=== PATIENT | female | born 1980 ===

== ENCOUNTER 2017-03-27 12:35 | Emergency (ER) | payer MEDICAID, OTHER ==
[2017-03-27 12:35] VITALS: BMI 36.8
[2017-03-27 12:54] VITALS: BP 125/85; PULSE 100; RESP 20; TEMP 98; O2SAT 99
--- NOTE | 2017-03-27 13:21 | ED PDOC ---
HPI: Psych/Substance Abuse Time Seen by Provider: 03/27/17 12:55 Chief Complaint (Nursing): Med Refill Chief Complaint (Provider): Psychiatric evaluation History Per: Patient History/Exam Limitations: no limitations Onset/Duration Of Symptoms: Days (x 2 months) Current Symptoms Are (Timing): Still Present Additional Complaint(s): Moira Santiago is a 36 y/o female who presents to the ED for psychiatric evaluation. States that due to insurance changes, she cannot afford psychiatrist 's office visit, and has been unable to find an in-network psychiatrist in the area accepting new patients. Patient has been off psychiatric meds for 2 months and is being to feel more anxious and frustrated. Has history of bipolar disorder and anxiety. Patient found old bottle of Celexa in her house and took one (20 mg), but felt worse. States she needs Celexa, Adderall, [place], and Latuda. PMD: Provider TBD Past Medical History Reviewed: Historical Data, Nursing Documentation, Vital Signs Vital Signs: Last Vital Signs Temp 98.0 F 03/27/17 12:50 Pulse 100 H 03/27/17 12:50 Resp 20 03/27/17 12:50 BP 125/85 03/27/17 12:50 Pulse Ox 99 03/27/17 12:50 - Medical History PMH: Anxiety, Back Problems (thoracic spine injury 12 yrs ago), Bipolar Disorder , Depression Denies: Diabetes, Hepatitis, HIV, HTN, Chronic Kidney Disease, Seizures, Sexually Transmitted Disease - Family History Family History: States: Unknown Family Hx - Immunization History Hx Tetanus Toxoid Vaccination: No Hx Influenza Vaccination: No Hx Pneumococcal Vaccination: No - Home Medications Home Medications: Ambulatory Orders Medication Instructions Recorded Citalopram Hydrobromide [Celexa] 20 mg PO DAILY 02/02/16 Dextroamphetamine/Amphetamine 30 mg PO DAILY 02/02/16 [Adderall Xr] DiphenhydrAMINE [Benadryl] 25 mg PO Q4H PRN #30 cap 02/02/16 Famotidine [Pepcid] 20 mg PO DAILY #5 tab 02/02/16 [place] Carbonate 1,200 mg PO DAILY 02/02/16 Lurasidone Hydrochloride [Latuda] 40 mg PO DAILY 02/02/16 predniSONE [Prednisone] 20 mg PO BID #10 tab 02/02/16 - Allergies Allergies/Adverse Reactions: Allergies Allergy/AdvReac Type Severity Reaction Status Date / Time No Known Allergies Allergy Verified 04/30/14 23:48 Review of Systems ROS Statement: Except As Marked, All Systems Reviewed And Found Negative Psych: Positive for: Anxiety, Depression Physical Exam - Reviewed Nursing Documentation Reviewed: Yes Vital Signs Reviewed: Yes - Physical Exam Appears: Positive for: Well, Non-toxic, No Acute Distress Head Exam: Positive for: ATRAUMATIC, NORMAL INSPECTION, NORMOCEPHALIC Skin: Positive for: Normal Color, Warm, Dry Eye Exam: Positive for: Normal appearance Neck: Positive for: Normal Cardiovascular/Chest: Positive for: Regular Rate, Rhythm. Negative for: Murmur Respiratory: Negative for: Respiratory Distress Extremity: Positive for: Normal ROM. 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 I have reviewed the chart and agree that the record accurately reflects my personal performance of the history, physical exam, medical decision making, and the department course for this patient. I have also personally directed, reviewed, and agree with the discharge instructions and disposition. Disposition - Clinical Impression Clinical Impression: Bipolar 2 disorder - Patient ED Disposition Is Patient to be Admitted: No Counseled Patient/Family Regarding: Diagnosis, Need For Followup - Disposition Referrals: [facility] [Outside] Disposition: Routine/Home Disposition Time: 15:11 Condition: GOOD Instructions: Bipolar Disorder (ED) Forms: [facility] (Kinyarwanda)
== END 2017-03-27 15:35 | disposition home or self-care (01) ==
LOC: H.ER 12:35
DX: F31.9 Bipolar disorder, unspecified (principal)

== ENCOUNTER 2017-04-17 17:11 | Emergency (ER) | payer MEDICAID, OTHER ==
[2017-04-17 17:12] VITALS: BMI 36.8
[2017-04-17 17:17] VITALS: BP 118/69; PULSE 75; RESP 16; TEMP 96.5; O2SAT 100
[2017-04-17 18:00] LABS: RBC URINE 3 /hpf (0-3); URINE BACTERIA RARE (<OCC); URINE BILIRUBIN NEGATIVE (NEGATIVE); URINE BLOOD NEGATIVE (NEGATIVE); URINE COLOR YELLOW (YELLOW); URINE GLUCOSE (UA) NEG (Normal); URINE KETONE NEGATIVE (NEGATIVE); URINE LEUKOCYTE ESTERASE NEG Leu/uL (Negative); URINE PROTEIN 30 mg/dL (NEGATIVE); WBC URINE 2 /hpf (0-5)
[2017-04-17 18:30] LABS: BASO # 0.1 K/uL (0.0-0.2); EOS # 0.4 K/uL (0.0-0.7); EOS % 3.1 % (0.0-4.0); HEMATOCRIT 40.3 % (34.0-47.0); LYMPH # 2.1 K/uL (1.0-4.3); LYMPH % 16.8 % (20.0-40.0); MEAN CELL VOLUME 93.1 fl (81.0-99.0); MEAN CORPUSCULAR HEMOGLOBIN 31.6 pg (27.0-31.0); MEAN CORPUSCULAR HGB CONC 33.9 g/dL (33.0-37.0); MEAN PLATELET VOLUME 8.9 fl (7.2-11.7); MONO # 0.9 K/uL (0.0-0.8); MONO % 7.1 % (0.0-10.0); WHITE BLOOD COUNT 12.5 K/uL (4.8-10.8)
--- NOTE | 2017-04-17 18:38 | ED PDOC ---
Syncope/Near Syncope/Dizziness Time Seen by Provider: 04/17/17 17:36 Chief Complaint (Nursing): Syncope Chief Complaint (Provider): Syncope History Per: Patient History/Exam Limitations: no limitations Onset/Duration Of Symptoms: Mins Current Symptoms Are (Timing): Gone Now Number Of Syncopal Episodes: 1 Activity At Onset Of Symptoms: Standing Associated Symptoms Preceding Syncopal Episode: Lightheadedness Seizure Or Post-ictal Symptoms: None Possible Causative Factor(s): New Medications Fall Associated With With Symptoms: No Injury As Result Of Fall Pain Scale Rating Of: 0 Additional Complaint(s): Moira Santiago, a 37 year old female, with a past medical history of bipolar disorder and attention-deficit/hyperactivity disorder presents to the ED post syncopal episode. The patient reports that she was at the [employer] standing in the line to pay for her groceries when she began to experience lightheadedness, cold sweats and nausea. According to the patient she felt these symptoms for a minute before she passed out. As per babita, the patient was unresponsive despite her eyes being open and remained this way for 2 minutes before she woke up.The patient reports that she woke up sitting on a crate and was told that she was falling forward and someone caught her before she fell and seated her on the crate. Prior to passing out, the patient states that she was able to text her to inform him that she was not feeling well. Patient states there was no postictal state and she was able to provide the number for her who came to get her and brought her to the hospital. Patient reports that prior to her syncopal episode she was sleeping normally, she was not on any diets and she has been taking her medications as prescribed. Of note: Patient reports that she recently increased her dosage of celaxa from 10 to 20 mg and her first dose was last night. PMD: Meir Jurado Past Medical History Reviewed: Historical Data, Nursing Documentation, Vital Signs Vital Signs: Last Vital Signs Temp 96.5 F L 04/17/17 17:13 Pulse 75 04/17/17 17:13 Resp 16 04/17/17 17:13 BP 118/69 04/17/17 17:13 Pulse Ox 100 04/17/17 17:13 - Medical History PMH: Anxiety, Back Problems (thoracic spine injury 12 yrs ago), Bipolar Disorder , Depression Denies: Diabetes, Hepatitis, HIV, HTN, Chronic Kidney Disease, Seizures, Sexually Transmitted Disease Other PMH: attention deficit/hyperactivity disorder - Surgical History Surgical History: No Surg Hx - Family History Family History: States: Other Other Family History: Mood disorders - Living Arrangements Living Arrangements: With Family - Social History Current smoker - smoking cessation education provided: No Ex-Smoker (has not smoked in the last 12 months): No Alcohol: Occasional (drinks 1-2 times per month) Drugs: Denies - Immunization History Hx Tetanus Toxoid Vaccination: No Hx Influenza Vaccination: No Hx Pneumococcal Vaccination: No - Home Medications Home Medications: Ambulatory Orders Medication Instructions Recorded Citalopram Hydrobromide [Celexa] 20 mg PO DAILY 02/02/16 Dextroamphetamine/Amphetamine 30 mg PO DAILY 02/02/16 [Adderall Xr] DiphenhydrAMINE [Benadryl] 25 mg PO Q4H PRN #30 cap 02/02/16 Famotidine [Pepcid] 20 mg PO DAILY #5 tab 02/02/16 [place] Carbonate 1,200 mg PO DAILY 02/02/16 Lurasidone Hydrochloride [Latuda] 40 mg PO DAILY 02/02/16 predniSONE [Prednisone] 20 mg PO BID #10 tab 02/02/16 - Allergies Allergies/Adverse Reactions: Allergies Allergy/AdvReac Type Severity Reaction Status Date / Time No Known Allergies Allergy Verified 04/17/17 17:13 Review of Systems ROS Statement: Except As Marked, All Systems Reviewed And Found Negative Constitutional: Positive for: Sweats (cold sweats) Cardiovascular: Positive for: Light Headedness Gastrointestinal: Positive for: Nausea Neurological: Positive for: Other (syncopal episode) Physical Exam - Reviewed Nursing Documentation Reviewed: Yes Vital Signs Reviewed: Yes - Physical Exam Appears: Positive for: Non-toxic, No Acute Distress Head Exam: Positive for: ATRAUMATIC, NORMOCEPHALIC Skin: Positive for: Warm, Dry Eye Exam: Positive for: EOMI, PERRL ENT: Positive for: Pharynx Is (clear). Negative for: Pharyngeal Erythema, Tonsillar Exudate Neck: Positive for: Painless ROM, Supple Cardiovascular/Chest: Positive for: Regular Rate, Rhythm, Chest Non Tender. Negative for: Murmur Respiratory: Positive for: Normal Breath Sounds. Negative for: Respiratory Distress Gastrointestinal/Abdominal: Positive for: Soft. Negative for: Tenderness Back: Positive for: Normal Inspection. Negative for: Decreased ROM Extremity: Positive for: Normal ROM. 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 Negative for: Motor/ Sensory Deficits, Aphasia, Facial Droop - Laboratory Results Result Diagrams: 04/17/17 18:25 04/17/17 18:25 - ECG ECG Rhythm: Positive for: Normal QRS, Normal ST Segment, Sinus Rhythm (68 bpm) O2 Sat by Pulse Oximetry: 100 (RA) Pulse Ox Interpretation: Normal Medical Decision Making Medical Decision Makin Initial Impression 37 y/o female presenting with syncope Differential: Vasovagal syncope, Electrolyte abnormality, Anemia, Dehydration, Adverse effect of medication change Initial Plan: * EKG * CMP * Drug Screen * [place] * Magnesium * Phosphorous * Thyroid Stimulating Hormone * Troponin I * Upreg * CBC * Accucheck * Orthostatic Blood Pressure * Urinalysis * Reevaluation No emergently significant lab abnormalities Pt continues to feel well. Now reports that just prior to onset of symptoms, she was carrying very heavy bags in both arms as she was heading to pay for her groceries. History is most c/w vasovagal syncope, given possible valsalva when carrying bags. - Scribe Attestation Documented by Cate Payne acting as a scribe for Moira Stout MD. Provider Attestation: All medical record entries made by the Scribe were at my direction and personally dictated by me. I have reviewed the chart and agree that the record accurately reflects my personal performance of the history, physical exam, medical decision making, and the department course for this patient. I have also personally directed, reviewed, and agree with the discharge instructions and disposition. Disposition - Clinical Impression Clinical Impression: Vasovagal syncope Discussed With : Meir Man Doctor Will See Patient In The: Office Counseled Patient/Family Regarding: Studies Performed, Diagnosis, Need For Followup - Disposition Referrals: Meir Man, AYDE, STOCK PULLER [Family Provider] - Zhanna Plummer MD [Staff Provider] - Disposition: Routine/Home Disposition Time: 18:30 Condition: IMPROVED Additional Instructions: DRINK PLENTY OF HYDRATING FLUIDS AND REST PLEASE READ THE FOLLOWING INSTRUCTIONS CAREFULLY. FOLLOW UP WITH MEIR MAN AND DR PLUMMER THIS WEEK IF POSSIBLE Instructions: Syncope (ED) Forms: [facility] ED School/Work Excuse
[2017-04-17 18:42] LABS: ALB/GLOB RATIO 1.3 (1.0-2.1); ALKALINE PHOSPHATASE 90 U/L (38-126); ALT/SGPT 27 U/L (9-52); AST/SGOT 24 U/L (14-36); BILIRUBIN,TOTAL 0.5 mg/dl (0.2-1.3); BLOOD UREA NITROGEN 19 mg/dl (7-17); CALCIUM 9.2 mg/dL (8.4-10.2); CARBON DIOXIDE 25 mmol/L (22-30); CHLORIDE 101 mmol/L (98-107); GFR AFRICAN-AMERICAN > 60; GLUCOSE,RANDOM 112 mg/dL (65-105); PHOSPHOROUS 3.6 mg/dl (2.5-4.5); POTASSIUM 4.6 MMOL/L (3.6-5.0); SODIUM 138 mmol/l (132-148); TOTAL PROTEIN 8.7 G/DL (6.3-8.2)
[2017-04-17] MEDS ORDERED: Sodium Chloride 0.9% 1,000 ML IV STA (18:47)
[2017-04-17 19:11] LABS: THYROID STIMULATING HORMONE 1.36 mIU/ML (0.46-4.68)
--- NOTE | 2017-04-18 10:53 | CARD ---
APPROVED REPORT EKG Measurement Heart [id number] CT [id number] <Conclusion> Normal sinus rhythm Normal ECG
== END 2017-04-17 20:10 | disposition home or self-care (01) ==
LOC: H.ER 17:11
DX: R55 Syncope and collapse (principal); F31.9 Bipolar disorder, unspecified; F41.9 Anxiety disorder, unspecified
CPT/HCPCS: 80053; 80178; 80324; 80345; 80346; 80349; 80353; 80358; 80361; 81003; 81025; 82948; 83735; 83992; 84100; 84443; 84484; 85025; 93005; 96360; 99285; J7040

== ENCOUNTER 2017-11-15 01:33 | Observation (INO) | payer OTHER ==
[2017-11-15 01:34] VITALS: BMI 36.8
[2017-11-15] MEDS ORDERED: Sodium Chloride 0.9% 1,000 ML IV STA (03:16)
--- NOTE | 2017-11-15 03:20 | ED PDOC ---
HPI: Back Time Seen by Provider: 11/15/17 03:00 Chief Complaint (Nursing): Back Pain Chief Complaint (Provider): back pain History Per: Patient History/Exam Limitations: no limitations Onset/Duration Of Symptoms: Hrs Current Symptoms Are (Timing): Still Present Quality Of Discomfort: "Pain" Additional Complaint(s): 37 y/o female presents for evaluation of low back pain (left side greater than right) x 5 hours. Associated dysuria, increased urine frequency, urgency, and two episodes of vomiting. Denies fever, chest pain, shortness of breath, palpitations, hematuria, vaginal bleeding/discharge. No medications taken for relief thus far. Past Medical History Reviewed: Historical Data, Nursing Documentation, Vital Signs Vital Signs: Last Vital Signs Temp 98.8 F 11/15/17 02:57 Pulse 113 H 11/15/17 02:57 Resp 16 11/15/17 02:57 BP 142/68 11/15/17 02:57 Pulse Ox 100 11/15/17 02:57 - Medical History PMH: Anxiety, Back Problems (thoracic spine injury 12 yrs ago), Bipolar Disorder , Depression Denies: Diabetes, Hepatitis, HIV, HTN, Chronic Kidney Disease, Seizures, Sexually Transmitted Disease - Surgical History Surgical History: No Surg Hx - Family History Family History: States: Unknown Family Hx - Immunization History Hx Tetanus Toxoid Vaccination: No Hx Influenza Vaccination: No Hx Pneumococcal Vaccination: No - Home Medications Home Medications: Ambulatory Orders Medication Instructions Recorded Citalopram Hydrobromide [Celexa] 20 mg PO DAILY 02/02/16 Dextroamphetamine/Amphetamine 30 mg PO DAILY 02/02/16 [Adderall Xr] [place] Carbonate 600 mg PO DAILY 02/02/16 Oxcarbazepine [Trileptal] 300 mg PO BID 11/15/17 - Allergies Allergies/Adverse Reactions: Allergies Allergy/AdvReac Type Severity Reaction Status Date / Time No Known Allergies Allergy Verified 04/17/17 17:13 Review of Systems ROS Statement: Except As Marked, All Systems Reviewed And Found Negative Gastrointestinal: Positive for: Nausea, Vomiting, Abdominal Pain Genitourinary Female: Positive for: Dysuria, Frequency Musculoskeletal: Positive for: Back Pain Physical Exam - Reviewed Nursing Documentation Reviewed: Yes Vital Signs Reviewed: Yes - Physical Exam Appears: Positive for: Well, Non-toxic, No Acute Distress Head Exam: Positive for: ATRAUMATIC, NORMAL INSPECTION, NORMOCEPHALIC Skin: Positive for: Normal Color Eye Exam: Positive for: Normal appearance ENT: Positive for: Normal ENT Inspection Cardiovascular/Chest: Positive for: Regular Rate, Rhythm Respiratory: Positive for: Normal Breath Sounds Gastrointestinal/Abdominal: Positive for: Normal Exam, Bowel Sounds, Soft, Tenderness (left flank) Back: Positive for: L CVA Tenderness Extremity: Positive for: Normal ROM Neurologic/Psych: Positive for: Alert, Oriented - Laboratory Results Result Diagrams: 11/15/17 04:00 11/15/17 04:00 - ECG O2 Sat by Pulse Oximetry: 100 - Progress ED Course And Treament: labs, urine, IV fluids, IV toradol IV rocephine dose ordered CT abd/pelvis ordered Dr. Melgoza spoke with Meir Man VP DATA for admission for acute pyelonephritis Disposition - Clinical Impression Clinical Impression: Pyelonephritis - Patient ED Disposition Is Patient to be Admitted: Yes - Disposition Disposition Time: 06:02 Condition: FAIR
[2017-11-15 04:13] LABS: BASO # 0.1 K/uL (0.0-0.2); BASO % 0.6 % (0.0-2.0); EOS # 0.1 K/uL (0.0-0.7); EOS % 0.8 % (0.0-4.0); HEMOGLOBIN 12.4 g/dL (12.0-16.0); LYMPH % 15.1 % (20.0-40.0); MEAN CORPUSCULAR HEMOGLOBIN 31.8 pg (27.0-31.0); MEAN PLATELET VOLUME 9.3 fl (7.2-11.7); MONO # 1.1 K/uL (0.0-0.8); MONO % 8.4 % (0.0-10.0); NEUT # 9.8 K/uL (1.8-7.0); NEUT % 75.1 % (50.0-75.0); RBC 3.88 Mil/uL (3.80-5.20); RED CELL DISTRIBUTION WIDTH 12.9 % (11.5-14.5)
[2017-11-15 04:37] LABS: SQUAMOUS EPITHIAL 1 /hpf (0-5); URINE BACTERIA RARE (<OCC); URINE BILIRUBIN NEGATIVE (NEGATIVE); URINE BLOOD MODERATE (NEGATIVE); URINE CLARITY CLOUDY (Clear); URINE COLOR YELLOW (YELLOW); URINE GLUCOSE (UA) NEG (Normal); URINE LEUKOCYTE ESTERASE LARGE Leu/uL (Negative); URINE PROTEIN 100 mg/dL (NEGATIVE); URINE UROBILINOGEN 0.2-1.0 mg/dL (0.2-1.0)
[2017-11-15] MEDS ORDERED: cefTRIAXone (Rocephin) 1 gm Inj ONE (05:47)
--- NOTE | 2017-11-15 06:12 | CT ---
EXAM: CT Abdomen and Pelvis Without Intravenous Contrast CLINICAL HISTORY: 37 years old, female; Pain; Abdominal pain; Flank; Left; Additional info: Left flank pain TECHNIQUE: Axial computed tomography images of the abdomen and pelvis without intravenous contrast. All CT scans at this facility use one or more dose reduction techniques, viz.: automated exposure control; ma/kV adjustment per patient size (including targeted exams where dose is matched to indication; i.e. head); or iterative reconstruction technique. 668 images are submitted. Axial images are submitted in soft tissue and lung windows. Coronal and sagittal reformatted images were created and reviewed. Axial reformatted images were created and reviewed. COMPARISON: No relevant prior studies available. FINDINGS: Artifacts: Overlying clothing artifacts. Limitations: Absence of IV contrast decreases sensitivity for detecting vascular and visceral injury and abnormality. Lung bases: Unremarkable. No mass. No consolidation. Mediastinum: Possible small hiatal hernia. ABDOMEN: Liver: Unremarkable. Gallbladder and bile ducts: Nonspecific gallbladder distention with hyperdense artifact versus gallstones. Pancreas: Unremarkable. No ductal dilation. Spleen: Unremarkable. No splenomegaly. Adrenals: Unremarkable. No mass. Kidneys and ureters: There is mild left hydroureteronephrosis with periureteric haziness. Correlation with clinical data is recommended ascending urinary tract infection is clinically suspected. Stomach and bowel: Diverticulosis. No obstruction. No mucosal thickening. PELVIS: Appendix: Normal appendix. Bladder: Partially decompressed bladder with 1.5 cm bladder wall thickening. Correlation with urinalysis is recommended only if clinical cystitis is suspected. Reproductive: Hypodense right ovarian cyst measuring 3.3 cm. Uterus is seen. Normal left ovary. ABDOMEN and PELVIS: Intraperitoneal space: Small amount of free pelvic fluid. No free air. Bones/joints: Pars defect at L5. No acute fracture. No dislocation. Soft tissues: There is a fat-containing umbilical hernia. Vasculature: The aorta is normal in caliber and there are no bishop-aortic collections. Lymph nodes: Multiple subcentimeter mesenteric and ileocolic lymph nodes. Findings are nonspecific but may represent mesenteric adenitis. IMPRESSION: 1. Hypodense right ovarian cyst measuring 3.3 cm.If clinically warranted, a pelvic ultrasound may be helpful for further assessment. 2. Partially decompressed bladder with 1.5 cm bladder wall thickening. Correlation with urinalysis is recommended only if clinical cystitis is suspected. 3. There is mild left hydroureteronephrosis with periureteric haziness. Correlation with clinical data is recommended ascending urinary tract infection is clinically suspected. 4. Small amount of free pelvic fluid. Correlation with internal medicine evaluation and further workup or followup as recommended by patient's clinical data.
[2017-11-15] MEDS: Sodium Chloride 0.9% 1,000 ML IV SCH ×2 (06:55→15:28)
[2017-11-15 07:48] LABS: ALBUMIN 4.3 g/dL (3.5-5.0); ALT/SGPT 33 U/L (9-52); AST/SGOT 33 U/L (14-36); BLOOD UREA NITROGEN 10 mg/dl (7-17); CALCIUM 9.9 mg/dL (8.4-10.2); GFR AFRICAN-AMERICAN > 60; GFR NON-AFRICAN AMERICAN > 60
--- NOTE | 2017-11-15 08:43 | CP.PCM.HP ---
History of Present Illness - History of Present Illness History of Present Illness: pt admitted for uti and left sided pyelonephritis. states started w/ pain f/c, nausea. no vomiting/diarrhea. pain controlled at present. all bw and imaging noted. Present on Admission - Present on Admission Any Indicators Present on Admission: No Review of Systems - Gastrointestinal Gastrointestinal: As Per HPI, Abdominal Pain, Nausea Past Patient History - Past Social History Smoking Status: Never Smoked - CARDIAC Hx Hypertension: No - PULMONARY Hx Tuberculosis: No - NEUROLOGICAL Hx Seizures: No - HEENT Hx HEENT Problems: No - RENAL Hx Chronic Kidney Disease: No - ENDOCRINE/METABOLIC Hx Endocrine Disorders: No - HEMATOLOGICAL/ONCOLOGICAL Hx Human Immunodeficiency Virus (HIV): No - INTEGUMENTARY Hx Dermatological Problems: No - MUSCULOSKELETAL/RHEUMATOLOGICAL Hx Musculoskeletal Disorders: No - GASTROINTESTINAL Hx Gastrointestinal Disorders: No - GENITOURINARY/GYNECOLOGICAL Hx Sexually Transmitted Disorders: No - PSYCHIATRIC Hx Psychophysiologic Disorder: Yes - SURGICAL HISTORY Hx Surgeries: No - ANESTHESIA Hx Anesthesia: No Meds Allergies/Adverse Reactions: Allergies Allergy/AdvReac Type Severity Reaction Status Date / Time No Known Allergies Allergy Verified 04/17/17 17:13 Physical Exam - Constitutional Appears: Well, Non-toxic, No Acute Distress - Head Exam Head Exam: ATRAUMATIC, NORMAL INSPECTION, NORMOCEPHALIC - Eye Exam Eye Exam: EOMI, Normal appearance, PERRL Pupil Exam: NORMAL ACCOMODATION, PERRL - ENT Exam ENT Exam: Mucous Membranes Moist, Normal Exam - Neck Exam Neck exam: Positive for: Normal Inspection - Respiratory Exam Respiratory Exam: Clear to Auscultation Bilateral, NORMAL BREATHING PATTERN - Cardiovascular Exam Cardiovascular Exam: REGULAR RHYTHM, RRR, +S1, +S2 - GI/Abdominal Exam GI & Abdominal Exam: Normal Bowel Sounds, Soft. absent: Tenderness - Extremities Exam Extremities exam: Positive for: full ROM, normal capillary refill, normal inspection, pedal pulses present - Back Exam Back exam: FULL ROM, NORMAL INSPECTION - Neurological Exam Neurological exam: Alert, CN II-XII Intact, Normal Gait, Oriented x3, Reflexes Normal - Psychiatric Exam Psychiatric exam: Normal Affect, Normal Mood - Skin Skin Exam: Dry, Intact, Normal Color, Warm Results - Vital Signs Recent Vital Signs: Last Vital Signs Temp 98.8 F 11/15/17 02:57 Pulse 71 11/15/17 08:01 Resp 16 11/15/17 08:01 BP 114/67 11/15/17 08:01 Pulse Ox 100 11/15/17 08:01 - Labs Result Diagrams: 11/15/17 04:00 11/15/17 04:00 Labs: Laboratory Results - last 24 hr 11/15/17 11/15/17 11/15/17 04:00 04:00 04:00 WBC 13.0 H RBC 3.88 Hgb 12.4 Hct 35.4 MCV 91.0 D MCH 31.8 H MCHC 35.0 RDW 12.9 Plt Count 276 MPV 9.3 Neut % (Auto) 75.1 H Lymph % (Auto) 15.1 L Antelope % (Auto) 8.4 Eos % (Auto) 0.8 Baso % (Auto) 0.6 Neut # (Auto) 9.8 H Lymph # (Auto) 2.0 Antelope # (Auto) 1.1 H Eos # (Auto) 0.1 Baso # (Auto) 0.1 Sodium 138 Potassium 3.7 Chloride 100 Carbon Dioxide 25 Anion Gap 17 BUN 10 Creatinine 0.6 L Est GFR ( Amer) > 60 Est GFR (Non-Af Amer) > 60 Random Glucose 102 Lactic Acid 1.5 Calcium 9.9 Total Bilirubin 0.9 AST 33 ALT 33 Alkaline Phosphatase 72 Total Protein 8.4 H Albumin 4.3 Globulin 4.1 H Albumin/Globulin Ratio 1.0 Urine Color Urine Clarity Urine pH Ur Specific [place] Urine Protein Urine Glucose (UA) Urine Ketones Urine Blood Urine Nitrate Urine Bilirubin Urine Urobilinogen Ur Leukocyte Esterase Urine RBC (Auto) Urine Microscopic WBC Ur Squamous Epith Cells Urine Bacteria 11/15/17 04:00 WBC RBC Hgb Hct MCV MCH MCHC RDW Plt Count MPV Neut % (Auto) Lymph % (Auto) Antelope % (Auto) Eos % (Auto) Baso % (Auto) Neut # (Auto) Lymph # (Auto) Antelope # (Auto) Eos # (Auto) Baso # (Auto) Sodium Potassium Chloride Carbon Dioxide Anion Gap BUN Creatinine Est GFR ( Amer) Est GFR (Non-Af Amer) Random Glucose Lactic Acid Calcium Total Bilirubin AST ALT Alkaline Phosphatase Total Protein Albumin Globulin Albumin/Globulin Ratio Urine Color Yellow Urine Clarity Cloudy Urine pH 8.0 Ur Specific [place] 1.011 Urine Protein 100 Urine Glucose (UA) Neg Urine Ketones Negative Urine Blood Moderate Urine Nitrate Negative Urine Bilirubin Negative Urine Urobilinogen 0.2-1.0 Ur Leukocyte Esterase Large Urine RBC (Auto) 56 H Urine Microscopic WBC 114 H Ur Squamous Epith Cells 1 Urine Bacteria Rare Assessment & Plan (1) DVT prophylaxis Assessment and Plan: scd and ae hose ambulation Status: Acute (2) Pyelonephritis Assessment and Plan: rocephin ivf pain and fever control Status: Acute (3) Bipolar 2 disorder Assessment and Plan: cont home meds, [place] nurse healthcare manager assessed Status: Acute Priority: High Decision To Admit - Pt Status Changed To: Hospital Disposition Of: Inpatient - Admit Certification Admit to Inpatient:: After my assessment, the patient will require hospitalization for at least two midnights. This is because of the severity of symptoms shown, intensity of services needed, and/or the medical risk in this patient being treated as an outpatient. - . Bed Request Type: Med/Surg Admitting Physician: Regina Henry
[2017-11-15] MEDS ORDERED: AMPHETAMINE PO SCH (09:00)
[2017-11-15] MEDS ORDERED: DEXTROAMPHETAMINE PO SCH (09:00)
[2017-11-15 12:32] VITALS: RESP 18
[2017-11-15 16:15] LABS: BASO # 0.1 K/uL (0.0-0.2); BASO % 1.2 % (0.0-2.0); EOS # 0.2 K/uL (0.0-0.7); EOS % 2.3 % (0.0-4.0); HEMOGLOBIN 11.7 g/dL (12.0-16.0); LYMPH # 2.3 K/uL (1.0-4.3); LYMPH % 26.2 % (20.0-40.0); MEAN CELL VOLUME 93.2 fl (81.0-99.0); MEAN CORPUSCULAR HEMOGLOBIN 31.6 pg (27.0-31.0); MEAN CORPUSCULAR HGB CONC 33.9 g/dL (33.0-37.0); MEAN PLATELET VOLUME 9.3 fl (7.2-11.7); MONO # 0.8 K/uL (0.0-0.8); MONO % 9.3 % (0.0-10.0); NEUT # 5.4 K/uL (1.8-7.0); NRBC % 0.1 % (0.0-0.0); RBC 3.7 Mil/uL (3.80-5.20); RED CELL DISTRIBUTION WIDTH 13.4 % (11.5-14.5); WHITE BLOOD COUNT 8.8 K/uL (4.8-10.8)
[2017-11-15 16:29] VITALS: BP 91/57; PULSE 72; TEMP 98; O2SAT 98
[2017-11-15 16:35] LABS: ALB/GLOB RATIO 1.1 (1.0-2.1); ALBUMIN 3.7 g/dL (3.5-5.0); ALT/SGPT 34 U/L (9-52); AST/SGOT 25 U/L (14-36); BLOOD UREA NITROGEN 16 mg/dl (7-17); CALCIUM 9.1 mg/dL (8.4-10.2); GFR AFRICAN-AMERICAN > 60; GFR NON-AFRICAN AMERICAN > 60
--- NOTE | 2017-11-16 08:26 | CP.PCM.DIS ---
Provider - Provider Date of Admission: 11/15/17 05:23 Attending physician: Regina Henry MD Primary care physician: Meir Man DNP, RECORD PRESS OPERATOR Time Spent in preparation of Discharge (in minutes): 5 Diagnosis - Discharge Diagnosis (1) DVT prophylaxis Status: Acute (2) Pyelonephritis Status: Acute (3) Bipolar 2 disorder Status: Acute Priority: High Hospital Course - Lab Results Lab Results: Micro Results 11/15/17 06:20 Blood Blood Culture - Preliminary NO GROWTH AFTER 24 HOURS 11/15/17 05:50 Blood Blood Culture - Preliminary NO GROWTH AFTER 24 HOURS Most Recent Lab Values WBC 8.8 K/uL (4.8-10.8) 11/15/17 16:09 RBC 3.70 Mil/uL (3.80-5.20) L 11/15/17 16:09 Hgb 11.7 g/dL (12.0-16.0) L 11/15/17 16:09 Hct 34.5 % (34.0-47.0) 11/15/17 16:09 MCV 93.2 fl (81.0-99.0) D 11/15/17 16:09 MCH 31.6 pg (27.0-31.0) H 11/15/17 16:09 MCHC 33.9 g/dL (33.0-37.0) 11/15/17 16:09 RDW 13.4 % (11.5-14.5) 11/15/17 16:09 Plt Count 252 K/uL (130-400) 11/15/17 16:09 MPV 9.3 fl (7.2-11.7) 11/15/17 16:09 Neut % (Auto) 61.0 % (50.0-75.0) 11/15/17 16:09 Lymph % (Auto) 26.2 % (20.0-40.0) 11/15/17 16:09 [place] % (Auto) 9.3 % (0.0-10.0) 11/15/17 16:09 Eos % (Auto) 2.3 % (0.0-4.0) 11/15/17 16:09 Baso % (Auto) 1.2 % (0.0-2.0) 11/15/17 16:09 Neut # (Auto) 5.4 K/uL (1.8-7.0) 11/15/17 16:09 Lymph # (Auto) 2.3 K/uL (1.0-4.3) 11/15/17 16:09 [place] # (Auto) 0.8 K/uL (0.0-0.8) 11/15/17 16:09 Eos # (Auto) 0.2 K/uL (0.0-0.7) 11/15/17 16:09 Baso # (Auto) 0.1 K/uL (0.0-0.2) 11/15/17 16:09 Sodium 142 mmol/l (132-148) 11/15/17 16:09 Potassium 3.9 MMOL/L (3.6-5.0) 11/15/17 16:09 Chloride 105 mmol/L (98-107) 11/15/17 16:09 Carbon Dioxide 26 mmol/L (22-30) 11/15/17 16:09 Anion Gap 15 (10-20) 11/15/17 16:09 BUN 16 mg/dl (7-17) 11/15/17 16:09 Creatinine 0.6 mg/dl (0.7-1.2) L 11/15/17 16:09 Est GFR ( Amer) > 60 11/15/17 16:09 Est GFR (Non-Af Amer) > 60 11/15/17 16:09 Random Glucose 97 mg/dL (65-105) 11/15/17 16:09 Lactic Acid 1.5 MMOL/L (0.7-2.1) 11/15/17 04:00 Calcium 9.1 mg/dL (8.4-10.2) 11/15/17 16:09 Total Bilirubin 0.6 mg/dl (0.2-1.3) 11/15/17 16:09 AST 25 U/L (14-36) 11/15/17 16:09 ALT 34 U/L (9-52) 11/15/17 16:09 Alkaline Phosphatase 59 U/L (38-126) 11/15/17 16:09 Total Protein 7.0 G/DL (6.3-8.2) 11/15/17 16:09 Albumin 3.7 g/dL (3.5-5.0) 11/15/17 16:09 Globulin 3.4 gm/dL (2.2-3.9) 11/15/17 16:09 Albumin/Globulin Ratio 1.1 (1.0-2.1) 11/15/17 16:09 Urine Color Yellow (YELLOW) 11/15/17 04:00 Urine Clarity Cloudy (Clear) 11/15/17 04:00 Urine pH 8.0 (5.0-8.0) 11/15/17 04:00 Ur Specific [place] 1.011 (1.003-1.030) 11/15/17 04:00 Urine Protein 100 mg/dL (NEGATIVE) 11/15/17 04:00 Urine Glucose (UA) Neg mg/dL (Normal) 11/15/17 04:00 Urine Ketones Negative mg/dL (NEGATIVE) 11/15/17 04:00 Urine Blood Moderate (NEGATIVE) 11/15/17 04:00 Urine Nitrate Negative (NEGATIVE) 11/15/17 04:00 Urine Bilirubin Negative (NEGATIVE) 11/15/17 04:00 Urine Urobilinogen 0.2-1.0 mg/dL (0.2-1.0) 11/15/17 04:00 Ur Leukocyte Esterase Large Kan/uL (Negative) 11/15/17 04:00 Urine RBC (Auto) 56 /hpf (0-3) H 11/15/17 04:00 Urine Microscopic WBC 114 /hpf (0-5) H 11/15/17 04:00 Ur Squamous Epith Cells 1 /hpf (0-5) 11/15/17 04:00 Urine Bacteria Rare (<OCC) 11/15/17 04:00 - Hospital Course Hospital Course: ivf, rocephin will follow c/s outpt Discharge Exam - Head Exam Head Exam: ATRAUMATIC, NORMAL INSPECTION, NORMOCEPHALIC Discharge Plan - Discharge Medications Prescriptions: Amoxicillin/Clavulanate [Augmentin 875 MG-125 MG] 1 tab PO BID #14 tab - Follow Up Plan Condition: FAIR Disposition: HOME/ ROUTINE Instructions: Urinary Tract Infections in Adults, Kidney Infection (DC) Additional Instructions: final dx uti, pyelonephritis doign well, bw noted. no f/c, n/v/d. wishes kenia dc. f/u rrmg norma, rted prn, meds per med rec Referrals: Meir Man, AYDE, RECORD PRESS OPERATOR [Primary Care Provider] -
== END 2017-11-15 19:44 | disposition home or self-care (01) ==
LOC: H.ER 01:33 → H.ERHOLD 05:23 → INTOOBSV 05:23 → H.MEDSURG1 08:15
PROVIDERS: ADMIT Family Medicine; ATTEND Family Medicine
DX: N12 Tubulo-interstitial nephritis, not specified as acute or chronic (principal); F31.81 Bipolar II disorder; F41.9 Anxiety disorder, unspecified
CPT/HCPCS: 74176; 80053; 81003; 81025; 83605; 85025; 87040; 87086; 87181; 96361; 96365; 96375; 99285; G0378; J0696; J1885; J2405; J7030

== ENCOUNTER 2018-08-19 12:59 | Emergency (ER) | payer OTHER ==
[2018-08-19 12:59] VITALS: BMI 36.8
[2018-08-19] MEDS ORDERED: Sodium Chloride 0.9% 1,000 ML IV STA (13:31)
--- NOTE | 2018-08-19 13:40 | ED PDOC ---
HPI: Psych/Substance Abuse Time Seen by Provider: 08/19/18 13:12 Chief Complaint (Nursing): Anxiety Chief Complaint (Provider): Anxiety History Per: Patient, EMS History/Exam Limitations: no limitations Onset/Duration Of Symptoms: Hrs Current Symptoms Are (Timing): Still Present Additional Complaint(s): Patient is a 38 y/o female with a PMHx of anxiety, back problems, bipolar disorder, and depression who was brought in by an ambulance after double dosing on Vyvanse earlier today. Patient took her usual dose of Vyvanse at 9:30, but then forgot she did and took another one at 11:30. At 12:45, the patient started having palpitations and developing a "weird" feeling in her chest but denied any shortness of breath. The patient called for an ambulance and was told to take Aspirin. The patient then proceeded to take four tablets of Aspirin. Furthermore, the patient began feeling stressed, which brought about a panic attack, that resolved on arrival to the ED. PCP: Dr. Meir Man Past Medical History Reviewed: Historical Data, Nursing Documentation, Vital Signs - Medical History PMH: Anxiety, Back Problems (thoracic spine injury 12 yrs ago), Bipolar Disorder (1), Depression Denies: Alzheimer's Disease, Anemia, Arthritis, Asthma, Atrial Fibrillation, Bronchitis, CAD, Cardia Arrhythmia, CHF, COPD, Crohn's Disease, Dementia, Diabetes, Diverticulitis, Emphysema, Fractures, Gastritis, Gall Bladder Disease, Hepatitis, HIV, HTN, Hypercholesterolemia, Hyperthyroidism, Hypothyroidism, Kidney Stones, Migraine, Mitral Valve Prolapse, Multiple Sclerosis, Osteoporosis, Pancreatitis, Paranoia, Parkinson's Disease, Peripheral Edema, Pneumonia, Post Traumatic Stress Disorder, Pulmonary Embolism, Chronic Kidney Disease, Rheumatoid Arthritis, Schizophrenia, Seizures, Sickle Cell Disease, Sexually Transmitted Disease, Sleep Apnea, TIA - Surgical History Surgical History: No Surg Hx Denies: Pacemaker - Family History Family History: States: Unknown Family Hx - Social History Drugs: Denies (No OCP Use) - Immunization History Hx Tetanus Toxoid Vaccination: No Hx Influenza Vaccination: No Hx Pneumococcal Vaccination: No - Home Medications Home Medications: Ambulatory Orders Medication Instructions Recorded Citalopram Hydrobromide [Celexa] 20 mg PO DAILY 02/02/16 Dextroamphetamine/Amphetamine 30 mg PO DAILY 02/02/16 [Adderall Xr 30 mg Capsule] [place] Carbonate 600 mg PO DAILY 02/02/16 Amoxicillin/Clavulanate [Augmentin 1 tab PO BID #14 tab 11/15/17 875 MG-125 MG] Oxcarbazepine [Trileptal] 300 mg PO BID 11/15/17 - Allergies Allergies/Adverse Reactions: Allergies Allergy/AdvReac Type Severity Reaction Status Date / Time No Known Allergies Allergy Verified 04/17/17 17:13 Review of Systems ROS Statement: Except As Marked, All Systems Reviewed And Found Negative Cardiovascular: Positive for: Chest Pain, Palpitations Respiratory: Negative for: Shortness of Breath Musculoskeletal: Negative for: Leg Pain (or Swelling) Physical Exam - Reviewed Nursing Documentation Reviewed: Yes Vital Signs Reviewed: Yes - Physical Exam Appears: Positive for: Non-toxic, No Acute Distress Head Exam: Positive for: ATRAUMATIC, NORMAL INSPECTION, NORMOCEPHALIC Skin: Positive for: Normal Color, Warm, Dry Eye Exam: Positive for: EOMI, Normal appearance, PERRL Neck: Positive for: Normal, Painless ROM, Supple Cardiovascular/Chest: Positive for: Tachycardia (with regular rhythm). Negative for: Murmur Respiratory: Positive for: Normal Breath Sounds. Negative for: Respiratory Distress Gastrointestinal/Abdominal: Positive for: Normal Exam, Soft. Negative for: Tenderness Extremity: Positive for: Normal ROM. Negative for: Pedal Edema, Calf Tenderness, Deformity Neurologic/Psych: Positive for: Alert, Oriented, Other (Speaking Full Sentences). Negative for: Motor/Sensory Deficits - Laboratory Results Result Diagrams: 08/19/18 13:55 08/19/18 13:55 - ECG O2 Sat by Pulse Oximetry: 100 (RA) Pulse Ox Interpretation: Normal Medical Decision Making Medical Decision Making: Time: 1330 Impression: Accidental OD and Palpitations Plan: CMP TSH Troponin Urine Urine Dipstick CBC D Dimer PTT Prothrombin Time CXR IV Fluids UA Time: 1438 FINDINGS: LUNGS: No active pulmonary disease. PLEURA: No significant pleural effusion identified. No pneumothorax apparent. CARDIOVASCULAR: No aortic atherosclerotic calcification present. Normal cardiac size. No pulmonary vascular congestion. OSSEOUS STRUCTURES: No significant abnormalities. VISUALIZED UPPER ABDOMEN: Normal. OTHER FINDINGS: None. IMPRESSION: No active disease. 18:05 Case discussed with Meir Man, agrees with discharge home. -- Scribe Attestation: Documented by Luca Chang, acting as a scribe for Pat Munoz MD. Provider Scribe Attestation: All medical record entries made by the Scribe were at my direction and personally dictated by me. I have reviewed the chart and agree that the record accurately reflects my personal performance of the history, physical exam, medical decision making, and the department course for this patient. I have also personally directed, reviewed, and agree with the discharge instructions and disposition. Disposition - Clinical Impression Clinical Impression: Palpitations - Disposition Referrals: Meir Man DNP, ACCOUNTANT CLERK [Family Provider] - Disposition: Routine/Home Disposition Time: 17:43 Condition: STABLE Instructions: Palpitations Forms: [facility] [facility] (U[place])
--- NOTE | 2018-08-19 14:43 | RAD ---
Date of service: 08/19/2018 HISTORY: Palpitations COMPARISON: No prior. TECHNIQUE: Chest PA and lateral FINDINGS: LUNGS: No active pulmonary disease. PLEURA: No significant pleural effusion identified. No pneumothorax apparent. CARDIOVASCULAR: No aortic atherosclerotic calcification present. Normal cardiac size. No pulmonary vascular congestion. OSSEOUS STRUCTURES: No significant abnormalities. VISUALIZED UPPER ABDOMEN: Normal. OTHER FINDINGS: None. IMPRESSION: No active disease.
[2018-08-19 14:48] LABS: BASO # 0.1 K/uL (0.0-0.2); BASO % 0.8 % (0.0-2.0); EOS # 0.3 K/uL (0.0-0.7); EOS % 3.4 % (0.0-4.0); LYMPH # 2.8 K/uL (1.0-4.3); LYMPH % 32.1 % (20.0-40.0); MEAN CELL VOLUME 93.1 fl (81.0-99.0); MEAN CORPUSCULAR HEMOGLOBIN 31.2 pg (27.0-31.0); MEAN CORPUSCULAR HGB CONC 33.5 g/dL (33.0-37.0); MEAN PLATELET VOLUME 9.8 fl (7.2-11.7); MONO # 0.9 K/uL (0.0-0.8); MONO % 10.3 % (0.0-10.0); NEUT # 4.6 K/uL (1.8-7.0); NEUT % 53.4 % (50.0-75.0); NRBC % 0.2 % (0.0-0.0); RBC 4.18 Mil/uL (3.80-5.20); WHITE BLOOD COUNT 8.7 K/uL (4.8-10.8)
[2018-08-19 14:54] LABS: SQUAMOUS EPITHIAL 15 /hpf (0-5); URINE AMORPHOUS SEDIMENT RARE /ul (<OCC); URINE BACTERIA RARE (<OCC); URINE BILIRUBIN NEGATIVE (NEGATIVE); URINE BLOOD NEGATIVE (NEGATIVE); URINE CLARITY CLOUDY (Clear); URINE COLOR YELLOW (YELLOW); URINE GLUCOSE (UA) NEG (NEGATIVE); URINE LEUKOCYTE ESTERASE NEG Leu/uL (Negative); URINE PROTEIN 100 mg/dL (NEGATIVE); URINE UROBILINOGEN 0.2-1.0 mg/dL (0.2-1.0)
[2018-08-19 15:05] LABS: PROTHROMBIN TIME 11.7 Seconds (9.8-13.1)
[2018-08-19 15:08] LABS: PARTIAL THROMBOPLASTIN TIME 30.8 Seconds (25.6-37.1)
[2018-08-19 15:15] LABS: ALB/GLOB RATIO 1.3 (1.0-2.1); ALBUMIN 4.5 g/dL (3.5-5.0); ALT/SGPT 21 U/L (9-52); AST/SGOT 40 U/L (14-36); BLOOD UREA NITROGEN 16 mg/dl (7-17); CALCIUM 10.1 mg/dL (8.4-10.2); GFR NON-AFRICAN AMERICAN > 60
[2018-08-19] MEDS ORDERED: Sodium Chloride 0.9% 200 ML IV ONE (16:56)
[2018-08-19] MEDS ORDERED: Iodixanol 320 MG/ML 100 ML BOTTLE IV ONE (16:56)
--- NOTE | 2018-08-19 17:41 | CT ---
Date of service: 08/19/2018 PROCEDURE: CT Chest with contrast (Pulmonary Angiogram) HISTORY: Palpitations COMPARISON: None available. TECHNIQUE: Axial computed tomography images were obtained of the chest in the pulmonary arterial phase of enhancement. Coronal and sagittal reformatted images were created and reviewed. Intravenous contrast dose: 90 mL Visipaque 320 Radiation dose: Total exam DLP = 331.82 mGy-cm. This CT exam was performed using one or more of the following dose reduction techniques: Automated exposure control, adjustment of the mA and/or kV according to patient size, and/or use of iterative reconstruction technique. FINDINGS: PULMONARY ARTERIES: Unremarkable. No pulmonary embolism. AORTA: No acute findings. No thoracic aortic aneurysm. No aortic atherosclerotic calcification or mural plaque present. LUNGS: Unremarkable. No nodule, mass or pulmonary consolidation. PLEURAL SPACES: Unremarkable. No effusion or pneumothorax. HEART: Unremarkable. No cardiomegaly. No significant pericardial effusion. LYMPH NODES: No lymphadenopathy. BONES, CHEST WALL: Unremarkable. No fracture or destructive lesion OTHER FINDINGS: Unremarkable. IMPRESSION: Unremarkable CT pulmonary angiogram. No pulmonary embolus.
[2018-08-19 18:09] VITALS: BP 136/85; RESP 17; TEMP 98.2
[2018-08-20 01:02] VITALS: PULSE 86
[2018-08-21 07:54] VITALS: O2SAT 100
== END 2018-08-19 18:10 | disposition home or self-care (01) ==
LOC: H.ER 12:59
DX: R00.2 Palpitations (principal); Z86.59 Personal history of other mental and behavioral disorders
CPT/HCPCS: 71046; 71275; 80053; 81003; 81025; 84443; 84484; 85025; 85378; 85610; 85730; 96360; 99283; J7030; Q9967